=== PATIENT | female | born 1995 | race Caucasian/White ===

== ENCOUNTER 2018-02-26 03:22 | Emergency (ER) | payer MEDICAID ==
[~2018-02-26] VITALS: Ht 157.5 cm; Wt 45.9 kg
[~2018-02-26 03:22] MED LIST: ONDA4TAB59 PO; ONDA8TAB9 PO
[2018-02-26 03:26] VITALS: BP 130/89
[2018-02-26] MEDS ORDERED: cephalexin 500mg capsule PO ONE (04:10)
[2018-02-26] MEDS ORDERED: bacitracin 15gm ointment TP ONE (04:10)
[2018-02-26] MEDS ORDERED: CEPH250T PO (04:12)
== END 2018-02-26 04:37 | disposition home or self-care (01) ==
LOC: ER 03:23
DX: L08.89 Other specified local infections of the skin and subcutaneous tissue (principal); F12.90 Cannabis use, unspecified, uncomplicated; F15.90 Other stimulant use, unspecified, uncomplicated; Z79.2 Long term (current) use of antibiotics; Z79.899 Other long term (current) drug therapy
CPT/HCPCS: 99283; A6446; A6449

== ENCOUNTER 2018-09-09 07:52 | Emergency (ER) | payer MEDICAID, OTHER ==
[~2018-09-09] VITALS: Ht 157.5 cm; Wt 50.0 kg
[~2018-09-09 07:52] MED LIST changes: +CEPH250T PO
[2018-09-09 09:05] VITALS: BP 141/97
== END 2018-09-09 09:07 ==
LOC: ER 07:53
DX: T42.4X1A Poisoning by benzodiazepines, accidental (unintentional), initial encounter (principal); R41.0 Disorientation, unspecified; R53.83 Other fatigue; F12.90 Cannabis use, unspecified, uncomplicated; F15.90 Other stimulant use, unspecified, uncomplicated; Z79.899 Other long term (current) drug therapy; Y92.89 Other specified places as the place of occurrence of the external cause
CPT/HCPCS: 99283

== ENCOUNTER 2019-01-14 00:21 | Emergency (ER) | payer MEDICAID, OTHER ==
[~2019-01-14] VITALS: Ht 157.5 cm; Wt 50.0 kg
[2019-01-14 00:23] VITALS: BP 135/85
[2019-01-14] MEDS ORDERED: CEPH250T PO (00:49)
== END 2019-01-14 01:01 | disposition home or self-care (01) ==
LOC: ER 00:21
DX: S61.217A Laceration without foreign body of left little finger without damage to nail, initial encounter (principal); F12.90 Cannabis use, unspecified, uncomplicated; F15.90 Other stimulant use, unspecified, uncomplicated; Z79.2 Long term (current) use of antibiotics; W22.8XXA Striking against or struck by other objects, initial encounter; Y93.89 Activity, other specified; Y92.810 Car as the place of occurrence of the external cause; Y99.8 Other external cause status
CPT/HCPCS: 73130; 99283

== ENCOUNTER 2019-05-31 21:02 | Emergency (ER) | payer MEDICAID ==
[~2019-05-31] VITALS: Ht 157.5 cm; Wt 51.7 kg
[~2019-05-31 21:02] MED LIST changes: -CEPH250T PO
[2019-05-31 21:07] VITALS: BP 122/85
[2019-05-31 21:34] LABS: URINE HCG NEGATIVE (NEG)
[2019-05-31 21:40] LABS: CLARITY,URINE CLEAR (Clear); COLOR,URINE YELLOW (Yellow); GLUCOSE, URINE NEGATIVE (Neg); KETONES,URINE NEGATIVE (Neg); LEUKOCYTE ESTERASE ,URINE NEGATIVE (Neg); NITRITES, URINE NEGATIVE (Neg); OCCULT BLOOD,URINE NEGATIVE (Neg); PROTEIN,URINE NEGATIVE (Neg); UROBILINOGEN,URINE 0.2 E.U/dL (0.2-1.0)
[2019-05-31 21:50] LABS: UA COLLECTION TYPE VOIDED
== END 2019-05-31 22:51 | disposition home or self-care (01) ==
LOC: ER 21:04
DX: M54.5 Low back pain (principal); R31.9 Hematuria, unspecified; F12.90 Cannabis use, unspecified, uncomplicated; F15.90 Other stimulant use, unspecified, uncomplicated; Z79.899 Other long term (current) drug therapy
CPT/HCPCS: 36415; 81003; 81025; 87491; 99283

== ENCOUNTER 2019-10-20 14:24 | Emergency (ER) | payer MEDICAID ==
[~2019-10-20] VITALS: Ht 157.5 cm; Wt 48.6 kg
--- NOTE | 2019-10-20 14:38 | NUR ---
KIM Salinas at bedside.
[2019-10-20] MEDS ORDERED: LIDOcaine 1% W/epiNEPHrine 1:200,000 10ml vial IJ ONE (14:40)
[2019-10-20] MEDS ORDERED: TETanus/Pertussis (Acell)/Diphther VAC/PF (Tdap-Adult) 0.5ml syringe IMVAC ONE (14:40)
--- NOTE | 2019-10-20 15:10 | NUR ---
Assisted KIM Salinas with I&D of sebaceous cyst on R Lower Buttock. Pt tolerated well.
[2019-10-20 15:31] VITALS: BP 137/80
== END 2019-10-20 15:33 | disposition home or self-care (01) ==
LOC: ER 14:24
DX: L72.3 Sebaceous cyst (principal); F12.90 Cannabis use, unspecified, uncomplicated; F15.90 Other stimulant use, unspecified, uncomplicated; Z79.899 Other long term (current) drug therapy
CPT/HCPCS: 10060; 90471; 90715; 99283

== ENCOUNTER 2020-08-12 10:35 | Emergency (ER) | payer MEDICAID | END 2020-08-12 11:33 | disposition left against medical advice (07) | LOC: ER 10:36 | DX: R10.84 Generalized abdominal pain (principal); Z53.21 Procedure and treatment not carried out due to patient leaving prior to being seen by health care provider ==

== ENCOUNTER 2023-06-05 16:05 | Emergency (ER) | payer MEDICAID ==
[~2023-06-05] VITALS: Ht 157.5 cm; Wt 66.8 kg
[2023-06-05 18:51] LABS: BASOPHILS # (AUTO) 0.1 X10'3 (0-0.2); BASOPHILS % (AUTO) 1.9 % (0-1); EOSINOPHILS % (AUTO) 0.5 % (0-6); HEMATOCRIT 35.8 % (35.0-45.0); LYMPHOCYTES # (AUTO) 1.1 X10'3 (1.1-4.8); LYMPHOCYTES % (AUTO) 17.7 % (21-51); MEAN CORPUSCULAR HEMOGLOBIN 32.2 PG (27.0-31.0); MEAN CORPUSCULAR HGB CONC 33.7 g/dL (33.0-36.5); MEAN CORPUSCULAR VOLUME 95.5 FL (78-98); MEAN PLATELET VOLUME 7.3 FL (7.4-10.4); MONOCYTES # (AUTO) 0.7 X10'3 (0-0.9); MONOCYTES % (AUTO) 10.7 % (2-12); NEUTROPHILS # (AUTO) 4.4 X10'3 (1.8-7.7); NEUTROPHILS % (AUTO) 69.2 % (42-75); PLATELET COUNT 213 X10'3 (140-440); RED BLOOD COUNT 3.75 X10'6 (4.20-5.60); RED CELL DISTRIBUTION WIDTH 12.8 % (11.5-14.5); WHITE BLOOD COUNT 6.3 X10'3 (4.5-11.0)
[2023-06-05 19:12] LABS: ALANINE AMINOTRANSFERASE 33 U/L (12-78); ALBUMIN 3.4 G/DL (3.4-5.0); ALBUMIN/GLOBULIN RATIO 0.9 (1.1-1.5); ALKALINE PHOSPHATASE 80 IU/L (46-116); ANION GAP 5 (8-16); ASPARTATE AMINO TRANSFERASE 18 U/L (10-37); BILIRUBIN,TOTAL 0.2 MG/DL (0.1-1.0); BLOOD UREA NITROGEN 13 MG/DL (7-18); CALCIUM 9.1 MG/DL (8.5-10.1); CHLORIDE 103 MMOL/L (99-107); GLUCOSE 101 MG/DL (70-104); POTASSIUM 4.1 MMOL/L (3.5-5.1); SODIUM 141 MMOL/L (135-145); TOTAL PROTEIN 7.2 G/DL (6.4-8.2); eCRCL 67 ML/MIN; eGFR 67 ML/MIN
[2023-06-05 19:19] LABS: PRO BRAIN NATRIURETIC PEPTIDE 103 PG/ML (0-125)
[2023-06-05] MEDS ORDERED: ketorolac trometh. 30mg/ml inj. IM ONE (20:20)
[2023-06-05 20:38] LABS: D-DIMER 0.58 MG/L FEU (0-0.50)
[2023-06-05 20:53] LABS: HCG SERUM QL NEGATIVE
[2023-06-05] MEDS ORDERED: ketorolac trometh. 30mg/ml inj. IV ONE (21:00)
[2023-06-05] MEDS ORDERED: iohexol 350MG/ML 100ml bottle IV ONE (21:35)
[2023-06-05] MEDS ORDERED: IBUP-1984 PO (22:44)
[2023-06-05 23:11] VITALS: BP 123/86; PULSE 89; RESP 16; TEMP 98.3; O2SAT 100
== END 2023-06-05 23:13 | disposition home or self-care (01) ==
LOC: ER 16:05
DX: R07.9 Chest pain, unspecified (principal); M54.9 Dorsalgia, unspecified; Z79.899 Other long term (current) drug therapy
CPT/HCPCS: 36415; 71045; 71275; 80053; 83880; 84484; 84703; 85025; 85379; 93005; 96374; 99285; J1885; J3490; Q9967

== ENCOUNTER 2023-11-14 13:53 | Emergency (ER) | payer MEDICAID ==
[~2023-11-14] VITALS: Ht 157.5 cm; Wt 62.7 kg
[2023-11-14 14:23] VITALS: BP 125/78; PULSE 93; TEMP 98.5; O2SAT 98
[2023-11-14 15:02] VITALS: RESP 16
[2023-11-14 15:57] LABS: BASOPHILS # (AUTO) 0.1 X10'3 (0-0.2); BASOPHILS % (AUTO) 1.8 % (0-1); EOSINOPHILS % (AUTO) 0.1 % (0-6); HEMATOCRIT 37.4 % (35.0-45.0); HEMOGLOBIN 12.4 g/dl (12.0-16.0); LYMPHOCYTES # (AUTO) 1.2 X10'3 (1.1-4.8); LYMPHOCYTES % (AUTO) 19.6 % (21-51); MEAN CORPUSCULAR HEMOGLOBIN 32.4 PG (27.0-31.0); MEAN CORPUSCULAR HGB CONC 33.3 g/dL (33.0-36.5); MEAN CORPUSCULAR VOLUME 97.2 FL (78-98); MONOCYTES # (AUTO) 0.5 X10'3 (0-0.9); MONOCYTES % (AUTO) 7.7 % (2-12); NEUTROPHILS # (AUTO) 4.5 X10'3 (1.8-7.7); NEUTROPHILS % (AUTO) 70.8 % (42-75); PLATELET COUNT 202 X10'3 (140-440); RED BLOOD COUNT 3.84 X10'6 (4.20-5.60); RED CELL DISTRIBUTION WIDTH 13.7 % (11.5-14.5); WHITE BLOOD COUNT 6.3 X10'3 (4.5-11.0)
[2023-11-14 16:15] LABS: ALBUMIN 3.5 G/DL (3.4-5.0); ANION GAP 7 (8-16); BLOOD UREA NITROGEN 11 MG/DL (7-18); BUN/CREATININE RATIO 13.8 (10.0-20.0); CHLORIDE 108 MMOL/L (99-107); GLUCOSE 114 MG/DL (70-104); POTASSIUM 3.8 MMOL/L (3.5-5.1); PRO BRAIN NATRIURETIC PEPTIDE < 30 PG/ML (0-125); SODIUM 143 MMOL/L (135-145); TOTAL CARBON DIOXIDE 27.6 MMOL/L (24-32); eCRCL 83 ML/MIN; eGFR 85 ML/MIN
[2023-11-14] MEDS ORDERED: METH4TAB81 PO ×2 (16:51)
[2023-11-14] MEDS ORDERED: AZIT500T2 PO (16:51)
== END 2023-11-14 18:07 | disposition home or self-care (01) ==
LOC: ER 13:53
DX: J20.9 Acute bronchitis, unspecified (principal); F15.90 Other stimulant use, unspecified, uncomplicated; F12.90 Cannabis use, unspecified, uncomplicated; Z79.899 Other long term (current) drug therapy
CPT/HCPCS: 36415; 71045; 80048; 83880; 85025; 99284

== ENCOUNTER 2024-03-15 17:48 | Emergency (ER) | payer MEDICAID ==
[~2024-03-15] VITALS: Ht 160 cm; Wt 57.6 kg
[~2024-03-15 17:48] MED LIST changes: +METH4TAB81 PO
[2024-03-15] MEDS ORDERED: BUPR1FIL3 SL (18:51)
[2024-03-15] MEDS ORDERED: NALO4SPR5 (18:51)
[2024-03-15 19:09] VITALS: BP 136/94; PULSE 96; RESP 18; TEMP 99; O2SAT 96
== END 2024-03-15 19:10 | disposition home or self-care (01) ==
LOC: ER 17:48
DX: F11.20 Opioid dependence, uncomplicated (principal); F12.90 Cannabis use, unspecified, uncomplicated; F15.90 Other stimulant use, unspecified, uncomplicated; Z79.899 Other long term (current) drug therapy
CPT/HCPCS: 99283